=== PATIENT | female | born 1980 | race Caucasian/White ===

== ENCOUNTER 2017-03-27 15:08 | Emergency (ER) | payer OTHER ==
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
--- NOTE | 2017-03-27 16:17 | ED ORDER SUMMARY ---
..... Patient: CHAYA ARREOLA OrderSheet [facility] VisitID: [id number] [address] [place] [address] 37y, F Registration Date/Time: 03/27/2017 ORDER SHEET Weight: 72.5 kg (stated) Allergies: Erythromycin GENERAL ORDERS: UA-Culture if indicated Urgent (15:23 03/27/2017 EKoroleva P.A.-C) (Ack 15:32 LNations ER Tech1) (16:03 DDean R.N.) Urine Urgent (15:23 03/27/2017 EKoroleva P.A.-C) (Ack 15:32 LNations ER Tech1) (16:03 DDean R.N.) MEDICATION ORDERS: Pyridium PO 100 mg (NOW) (15:23 03/27/2017 EKoroleva P.A.-C) (15:27 DDean R.N.) Macrobid PO 100 mg (NOW) (16:06 03/27/2017 EKoroleva P.A.-C) (16:10 DDean R.N.) IV FLUIDS: ORDER SHEET NOTES: [Electronically signed by Mai Bill R.N. (16:29 03/27/2017)] [Electronically signed by Kindra Manzano P.A.-C (16:38 03/27/2017)] [Electronically locked/signed by Mai Bill R.N. (16:29 03/27/2017)]
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
--- NOTE | 2017-03-27 16:17 | ED ORDER SUMMARY ---
..... Patient: CHAYA ARREOLA OrderSheet [facility] VisitID: [id number] [address] [place] [address] 37y, F Registration Date/Time: 03/27/2017 ORDER SHEET Weight: 72.5 kg (stated) Allergies: Erythromycin GENERAL ORDERS: UA-Culture if indicated Urgent (15:23 03/27/2017 EKoroleva P.A.-C) (Ack 15:32 LNations ER Tech1) (16:03 DDean R.N.) Urine Urgent (15:23 03/27/2017 EKoroleva P.A.-C) (Ack 15:32 LNations ER Tech1) (16:03 DDean R.N.) MEDICATION ORDERS: Pyridium PO 100 mg (NOW) (15:23 03/27/2017 EKoroleva P.A.-C) (15:27 DDean R.N.) Macrobid PO 100 mg (NOW) (16:06 03/27/2017 EKoroleva P.A.-C) (16:10 DDean R.N.) IV FLUIDS: ORDER SHEET NOTES: [Electronically signed by Mai Bill R.N. (16:29 03/27/2017)] [Electronically signed by Kindra Manzano P.A.-C (16:38 03/27/2017)] [Electronically locked/signed by Mai Bill R.N. (16:29 03/27/2017)]
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
--- NOTE | 2017-03-27 16:38 | ED MAR SUMMARY ---
..... Medication Administration Record [facility] [address] [place] [address] Patient: CHAYA ARREOLA Visit ID: [id number] 37y, F Weight: 72.5 kg Height/Length: 65 in BMI: 26.6 ALLERGIES: Erythromycin Given 15:27 03/27/2017 Cayla Meredith, R.N. Medication Administered: PYRIDIUM [PO] (PHENAZOPYRIDINE HCL), Dose: 100 mg Tablets PO. Medication Ordered: Pyridium PO 100 mg (NOW). Given 16:10 03/27/2017 Cayla Meredith, R.N. Medication Administered: MACROBID [PO], Dose: 100 mg Capsules PO. Medication Ordered: Macrobid PO 100 mg (NOW).
--- NOTE | 2017-03-27 16:38 | ED MED RECONCILIATION SUMMARY ---
Patient: CHAYA ARREOLA Medication Reconciliation Report [facility] VisitID: [id number] [address] [place] [address] 37y, F Registration Date/Time: 03/27/2017 Weight: 72.5 kg Height/Length: 65 in. BMI: 26.6 ALLERGIES: Erythromycin The patient's Home Medications are listed below: THE FOLLOWING MEDICATIONS NEED TO BE RECONCILED: ALPRAZolam Oral, at bedtime [id number] this am Potassium Chloride Oral 40 meq, daily Triamterene Oral, daily The source(s) of the original Home Medication information: Not obtained. The following Medications were given to the patient in the Emergency Department: Pyridium [PO] PO 100 mg, administered: 03/27/2017 3:27:00 PM Macrobid [PO] PO 100 mg, administered: 03/27/2017 4:10:00 PM The following Medications were prescribed to the patient: Pyridium 100 mg: take 1 orally every 8 hours for 2 days as needed for urinary problems. Dispense five (5). No refill. Substitution is permissible. -- Kindra Manzano, P.AJennifer-Dillon Macrobid 100 mg: Take 1 capsule orally every 12 hours for 7 days. No refills. Substitution is permissible. -- Kindra Manzano P.A.-C
--- NOTE | 2017-03-27 16:38 | ED MAR SUMMARY ---
..... Medication Administration Record [facility] [address] [place] [address] Patient: CHAYA ARREOLA Visit ID: [id number] 37y, F Weight: 72.5 kg Height/Length: 65 in BMI: 26.6 ALLERGIES: Erythromycin Given 15:27 03/27/2017 Cayla Meredith, R.N. Medication Administered: PYRIDIUM [PO] (PHENAZOPYRIDINE HCL), Dose: 100 mg Tablets PO. Medication Ordered: Pyridium PO 100 mg (NOW). Given 16:10 03/27/2017 Cayla Meredith, R.N. Medication Administered: MACROBID [PO], Dose: 100 mg Capsules PO. Medication Ordered: Macrobid PO 100 mg (NOW).
--- NOTE | 2017-03-27 16:38 | ED MED RECONCILIATION SUMMARY ---
Patient: CHAYA ARREOLA Medication Reconciliation Report [facility] VisitID: [id number] [address] [place] [address] 37y, F Registration Date/Time: 03/27/2017 Weight: 72.5 kg Height/Length: 65 in. BMI: 26.6 ALLERGIES: Erythromycin The patient's Home Medications are listed below: THE FOLLOWING MEDICATIONS NEED TO BE RECONCILED: ALPRAZolam Oral, at bedtime [id number] this am Potassium Chloride Oral 40 meq, daily Triamterene Oral, daily The source(s) of the original Home Medication information: Not obtained. The following Medications were given to the patient in the Emergency Department: Pyridium [PO] PO 100 mg, administered: 03/27/2017 3:27:00 PM Macrobid [PO] PO 100 mg, administered: 03/27/2017 4:10:00 PM The following Medications were prescribed to the patient: Pyridium 100 mg: take 1 orally every 8 hours for 2 days as needed for urinary problems. Dispense five (5). No refill. Substitution is permissible. -- Kindra Manzano, P.AJennifer-Dillon Macrobid 100 mg: Take 1 capsule orally every 12 hours for 7 days. No refills. Substitution is permissible. -- Kindra Manzano P.A.-C
--- NOTE | 2017-03-27 16:38 | ED DISCHARGE INSTRUCTIONS ---
Patient: CHAYA ARREOLA General Instructions [facility] VisitID: [id number] [place] [address] 37y, F Registration Date/Time: 03/27/2017 Acute urinary tract infection with cystitis. INSTRUCTIONS Drink plenty of fluids. (hydrate/ hydrate/hydrate). Prescription Medications: Pyridium 100 mg: take 1 orally every 8 hours for 2 days as needed for urinary problems. Dispense five (5). No refill. Substitution is permissible. Macrobid 100 mg: Take 1 capsule orally every 12 hours for 7 days. No refills. Substitution is permissible. Follow-up: Follow up with your doctor in three days as needed. ADDITIONAL INFORMATION Bladder Infection,Female (Adult) A bladder infection ("cystitis" or "UTI") usually causes a constant urge to urinate and a burning when passing urine. Urine may be cloudy, smelly or dark. There may be pain in the lower abdomen. A bladder infection occurs when bacteria from the vaginal area enter the bladder opening (urethra). This can occur from sexual intercourse, wearing tight clothing, dehydration and other factors. Home Care: Drink lots of fluids (at least 6-8 glasses a day, unless you must restrict fluids for other medical reasons). This will force the medicine into your urinary system and flush the bacteria out of your body. Avoid sexual intercourse until your symptoms are gone. Avoid caffeine, alcohol and spicy foods. These can irritate the bladder. A bladder infection is treated with antibiotics. You may also be given Pyridium (generic = phenazopyridine) to reduce the burning sensation. This medicine will cause your urine to become a bright orange color. The orange urine may stain clothing. You may wear a pad or panty-liner to protect clothing. Preventing Future Infections: Always wipe from front to back after a bowel movement. Keep the genital area clean and dry. Drink plenty of fluids each day to avoid dehydration. Both sexual partners should wash before intercourse. Urinate right after intercourse to flush out the bladder. Wear cotton underwear and cotton-lined panty hose; avoid tight-fitting pants. If you are on control pills and are having frequent bladder infections, discuss with your doctor. Follow Up: Return to this facility or see your doctor if ALL symptoms are not gone after three days of treatment. Get Prompt Medical Attention if any of the following occur: Fever of 100.4F (38C) or higher, or as directed by your healthcare provider No improvement by the third day of treatment Increasing back or abdominal pain Repeated vomiting; unable to keep medicine down Weakness, dizziness or fainting Vaginal discharge Pain, redness or swelling in the labia (outer vaginal area) Phenazopyridine Hydrochloride Oral tablet What is this medicine? PHENAZOPYRIDINE (fen az oh PEER dhruv pond) is a pain reliever. It is used to stop the pain, burning, or discomfort caused by infection or irritation of the urinary tract. This medicine is not an antibiotic. It will not cure a urinary tract infection. How should I use this medicine? Take this medicine by mouth with a glass of water. Follow the directions on the prescription label. Take after meals. Take your doses at regular intervals. Do not take your medicine more often than directed. Do not skip doses or stop your medicine early even if you feel better. Do not stop taking except on your doctor's advice. Talk to your cardiac catheterization technician regarding the use of this medicine in children. Special care may be needed. What side effects may I notice from receiving this medicine? Side effects that you should report to your doctor or health resident care aid as soon as possible: allergic reactions like skin rash, itching or hives, swelling of the face, lips, or tongue blue or purple color of the skin difficulty breathing fever less urine unusual bleeding, bruising unusual tired, weak vomiting yellowing of the eyes or skin Side effects that usually do not require medical attention (report to your doctor or health resident care aid if they continue or are bothersome): dark urine headache stomach upset What may interact with this medicine? Interactions are not expected. What if I miss a dose? If you miss a dose, take it as soon as you can. If it is almost time for your next dose, take only that dose. Do not take double or extra doses. Where should I keep my medicine? Keep out of the reach of children. Store at room temperature between 15 and 30 degrees C (59 and 86 degrees F). Protect from light and moisture. Throw away any unused medicine after the expiration date. What should I tell my health care provider before I take this medicine? They need to know if you have any of these conditions: [id number] dehydrogenase (G6PD) deficiency kidney disease an unusual or allergic reaction to phenazopyridine, other medicines, foods, dyes, or preservatives or trying to get breast-feeding What should I watch for while using this medicine? Tell your doctor or health resident care aid if your symptoms do not improve or if they get worse. This medicine colors body fluids red. This effect is harmless and will go away after you are done taking the medicine. It will change urine to an dark orange or red color. The red color may stain clothing. Soft contact lenses may become permanently stained. It is best not to wear soft contact lenses while taking this medicine. If you are diabetic you may get a false positive result for sugar in your urine. Talk to your health care provider. You have been given the following additional information: Bladder Infection, Female (Adult) Phenazopyridine Hydrochloride Oral tablet (Electronically signed by Kindra Manzano P.A.-C 03/27/2017 16:38)
--- NOTE | 2017-03-27 16:38 | ED DISCHARGE INSTRUCTIONS ---
Patient: CHAYA ARREOLA General Instructions [facility] VisitID: [id number] [place] [address] 37y, F Registration Date/Time: 03/27/2017 Acute urinary tract infection with cystitis. INSTRUCTIONS Drink plenty of fluids. (hydrate/ hydrate/hydrate). Prescription Medications: Pyridium 100 mg: take 1 orally every 8 hours for 2 days as needed for urinary problems. Dispense five (5). No refill. Substitution is permissible. Macrobid 100 mg: Take 1 capsule orally every 12 hours for 7 days. No refills. Substitution is permissible. Follow-up: Follow up with your doctor in three days as needed. ADDITIONAL INFORMATION Bladder Infection,Female (Adult) A bladder infection ("cystitis" or "UTI") usually causes a constant urge to urinate and a burning when passing urine. Urine may be cloudy, smelly or dark. There may be pain in the lower abdomen. A bladder infection occurs when bacteria from the vaginal area enter the bladder opening (urethra). This can occur from sexual intercourse, wearing tight clothing, dehydration and other factors. Home Care: Drink lots of fluids (at least 6-8 glasses a day, unless you must restrict fluids for other medical reasons). This will force the medicine into your urinary system and flush the bacteria out of your body. Avoid sexual intercourse until your symptoms are gone. Avoid caffeine, alcohol and spicy foods. These can irritate the bladder. A bladder infection is treated with antibiotics. You may also be given Pyridium (generic = phenazopyridine) to reduce the burning sensation. This medicine will cause your urine to become a bright orange color. The orange urine may stain clothing. You may wear a pad or panty-liner to protect clothing. Preventing Future Infections: Always wipe from front to back after a bowel movement. Keep the genital area clean and dry. Drink plenty of fluids each day to avoid dehydration. Both sexual partners should wash before intercourse. Urinate right after intercourse to flush out the bladder. Wear cotton underwear and cotton-lined panty hose; avoid tight-fitting pants. If you are on control pills and are having frequent bladder infections, discuss with your doctor. Follow Up: Return to this facility or see your doctor if ALL symptoms are not gone after three days of treatment. Get Prompt Medical Attention if any of the following occur: Fever of 100.4F (38C) or higher, or as directed by your healthcare provider No improvement by the third day of treatment Increasing back or abdominal pain Repeated vomiting; unable to keep medicine down Weakness, dizziness or fainting Vaginal discharge Pain, redness or swelling in the labia (outer vaginal area) Phenazopyridine Hydrochloride Oral tablet What is this medicine? PHENAZOPYRIDINE (fen az oh PEER dhruv [place]) is a pain reliever. It is used to stop the pain, burning, or discomfort caused by infection or irritation of the urinary tract. This medicine is not an antibiotic. It will not cure a urinary tract infection. How should I use this medicine? Take this medicine by mouth with a glass of water. Follow the directions on the prescription label. Take after meals. Take your doses at regular intervals. Do not take your medicine more often than directed. Do not skip doses or stop your medicine early even if you feel better. Do not stop taking except on your doctor's advice. Talk to your diesel fleet mechanic regarding the use of this medicine in children. Special care may be needed. What side effects may I notice from receiving this medicine? Side effects that you should report to your doctor or health critical care physician as soon as possible: allergic reactions like skin rash, itching or hives, swelling of the face, lips, or tongue blue or purple color of the skin difficulty breathing fever less urine unusual bleeding, bruising unusual tired, weak vomiting yellowing of the eyes or skin Side effects that usually do not require medical attention (report to your doctor or health critical care physician if they continue or are bothersome): dark urine headache stomach upset What may interact with this medicine? Interactions are not expected. What if I miss a dose? If you miss a dose, take it as soon as you can. If it is almost time for your next dose, take only that dose. Do not take double or extra doses. Where should I keep my medicine? Keep out of the reach of children. Store at room temperature between 15 and 30 degrees C (59 and 86 degrees F). Protect from light and moisture. Throw away any unused medicine after the expiration date. What should I tell my health care provider before I take this medicine? They need to know if you have any of these conditions: [id number]-5-ktvxdreoc dehydrogenase (G6PD) deficiency kidney disease an unusual or allergic reaction to phenazopyridine, other medicines, foods, dyes, or preservatives or trying to get breast-feeding What should I watch for while using this medicine? Tell your doctor or health critical care physician if your symptoms do not improve or if they get worse. This medicine colors body fluids red. This effect is harmless and will go away after you are done taking the medicine. It will change urine to an dark orange or red color. The red color may stain clothing. Soft contact lenses may become permanently stained. It is best not to wear soft contact lenses while taking this medicine. If you are diabetic you may get a false positive result for sugar in your urine. Talk to your health care provider. You have been given the following additional information: Bladder Infection, Female (Adult) Phenazopyridine Hydrochloride Oral tablet (Electronically signed by Kindra Manzano P.A.-C 03/27/2017 16:38)
== END 2017-03-27 16:28 | disposition home or self-care (01) ==
LOC: ED SRH 15:08
DX: N30.00 Acute cystitis without hematuria (principal); Z79.899 Other long term (current) drug therapy; Z79.82 Long term (current) use of aspirin; Z88.1 Allergy status to other antibiotic agents
CPT/HCPCS: 90004; 90148; 90469; 93070